=== PATIENT | female | born 1960 | race Caucasian/White ===

== ENCOUNTER 2018-02-04 09:52 | Outpatient (CLI) | payer OTHER | END 2018-02-04 09:53 | disposition home or self-care (01) | LOC: BICMAMMO 09:52 | PROVIDERS: ATTEND Internal Medicine | DX: Z12.31 Encounter for screening mammogram for malignant neoplasm of breast (principal) | CPT/HCPCS: 77063; 77067 ==

== ENCOUNTER 2018-05-11 13:51 | Outpatient (CLI) | payer OTHER ==
--- NOTE | 2018-05-11 15:05 | RAD ---
PA AND LATERAL VIEWS CHEST: Date: 05/11/18 HISTORY: Dyspnea. FINDINGS: Comparison made with exam of 07/19/02. The heart size is normal. The lungs are expanded without focal areas of consolidation, pneumothoraces , or pleural effusions. There is suggestion of a 5.0 mm nodule in the right infrahilar region. No pne umothoraces or pleural effusions are seen. No acute osseous abnormalities are identified. IMPRESSION: Probable right lung nodule. Further evaluation with CT scan of the chest is recommended. CODE T. CODE LN. POS: [facility]
== END 2018-05-11 13:52 | disposition home or self-care (01) ==
LOC: RAD 13:51
PROVIDERS: ATTEND Internal Medicine Critical Care Medicine
DX: R06.00 Dyspnea, unspecified (principal)
CPT/HCPCS: 71046

== ENCOUNTER 2018-12-28 09:23 | Outpatient (CLI) | payer OTHER ==
--- NOTE | 2018-12-28 09:45 | RAD ---
XR Chest Pa Lat @ [facility] HISTORY: Dyspnea COMPARISON: 05/11/2018 FINDINGS: The heart size is normal. The lungs are well expanded without focal areas of consolidation, pneumothorax or pleural effusions. The 5 mm nodule in the right infrahilar region appears stable. IMPRESSION: No radiographic evidence of acute cardiopulmonary process. Stable right lung nodule. Continued follow-up in 6 months is recommended.
== END 2018-12-28 09:24 | disposition home or self-care (01) ==
LOC: RAD 09:23
PROVIDERS: ATTEND Internal Medicine Critical Care Medicine
DX: R06.00 Dyspnea, unspecified (principal); R91.1 Solitary pulmonary nodule
CPT/HCPCS: 71046

== ENCOUNTER 2019-09-10 09:00 | Outpatient (CLI) | payer OTHER ==
--- NOTE | 2019-09-10 09:29 | MMO ---
Bilateral MAMMO Bilat Screen [facility]. CLINICAL HISTORY: Patient is 59 years old and is seen for screening. The patient has no family history of breast cancer. The patient has no personal history of cancer. VIEWS: The views performed were: bilateral craniocaudal with tomosynthesis and bilateral mediolateral oblique with tomosynthesis. FILMS COMPARED: The present examination has been compared to prior imaging studies performed at [facility] on 11/23/2012, and at [facility] on 07/14/2014, 07/31/2015 and 02/04/2018. This study has been interpreted with the assistance of computer-aided detection. MAMMOGRAM FINDINGS: There are scattered fibroglandular densities. There are stable benign appearing calcifications seen in both breasts. There are no suspicious masses, suspicious calcifications, or new areas of architectural distortion. IMPRESSION: THERE IS NO MAMMOGRAPHIC EVIDENCE OF MALIGNANCY. A ROUTINE FOLLOW-UP MAMMOGRAM IN 1 YEAR IS RECOMMENDED. THE RESULTS OF THIS EXAM WERE SENT TO THE PATIENT. ACR BI-RADS Category 2 - Benign finding MAMMOGRAPHY NOTE: 1. A negative mammogram report should not delay a biopsy if a dominant of clinically suspicious mass is present. 2. Approximately 10% to 15% of breast cancers are not detected by mammography. 3. Adenosis and dense breasts may obscure an underlying neoplasm. Reported by: LAURA VENTURA MD Electonically Signed: [id number]
== END 2019-09-10 09:01 | disposition home or self-care (01) ==
LOC: BICMAMMO 09:00
PROVIDERS: ATTEND Family Medicine
DX: Z12.31 Encounter for screening mammogram for malignant neoplasm of breast (principal)
CPT/HCPCS: 77063; 77067

== ENCOUNTER 2020-12-26 10:45 | Outpatient (CLI) | payer OTHER | END 2020-12-26 10:46 | disposition home or self-care (01) | LOC: BICMAMMO 10:45 | PROVIDERS: ATTEND Family Medicine | DX: Z13.820 Encounter for screening for osteoporosis (principal); Z78.0 Asymptomatic menopausal state | CPT/HCPCS: 77080 ==